=== PATIENT | female | born 1960 | race Caucasian/White ===

== ENCOUNTER 2024-03-08 01:48 | Observation (INO) | payer BC, SELFPAY ==
[2024-03-07] VITALS (9 sets, daily range): BP systolic 121–151; BP diastolic 63–94; BMI 35.8
--- NOTE | 2024-03-07 19:36 | ED.GENMED ---
History of Present Illness
General
Chief Complaint: Abdominal Symptoms
Source: patient
Exam Limitations: none
Time Seen by Provider: 03/07/24 18:46
Nursing documentation reviewed up to this point in time: agreed with
History of Present Illness
History of Present Illness:
Patient is a 63-year-old female who presents to the ER for evaluation. Patient reports she was popcorn with her granddaughter and around 4 PM started to feel very nauseous vomited and felt pain in the right face ,right jaw area and pain across her
chest. She did not feel any shortness of breath. She does still feel some pain across her chest that is around a 3 out of a 10. She has no cardiac history but has not been to her family doctor in a couple years. She does not smoke.
Denies any injury . Denies any back pain.
Review of Systems
Review of Systems
Allergies reviewed?: Yes
Other source history: family
All Other Systems: ROS reviewed and negative except as documented in HPI and ROS
Constitutional: Reports no symptoms; Denies fever, fatigue or chills
Respiratory: Denies trouble breathing
Cardiac: Reports chest pain; Denies palpitations
ABD/GI: Reports nausea and vomiting
Musculoskeletal: Reports no symptoms
Skin: Reports no symptoms
Neurological: Reports no symptoms
Psychiatric: Reports no symptoms
Phy Exam
General Physical Exam
General Presentation: no apparent distress
General age: appears stated age
General Skin: warm and dry
General Habitus: normal
General Mental: alert
General Hydration: appears well hydrated
Cardiovascular Exam
Cardiovascular Exam: regular rate/rhythm, no murmur and normal peripheral pulses
Pulmonary Exam
Pulmonary Exam: lungs clear and no respiratory distress
Neurological Exam
Neurological Exam: alert and oriented x3
Musculoskeletal Exam
Musculoskeletal Exam: full ROM
Skin Exam
Skin Exam: normal color and warm/dry
Psychiatric Exam
Psychiatric Exam: normal mood/affect
Course
Orders/Labs/Results
Orders:
Orders
03/07/24 18:24
ECG [Electrocardiogram (*1)] Urgent
Reason for Study: Chest Pain
EKG- Treatment ONCE
03/07/24 19:47
IV Insert/Care/Rem.- Treatment PRN
03/07/24 19:48
Cardiac Monitoring- Treatment ONCE
Aspirin Chewable [Low Strength Aspirin] 324 mg PO NOW STA
CR Chest - 2 Views Urgent
Comment:
Reason For Exam: cp
03/07/24 19:49
Nitroglycerin Sublingual [Nitrostat (Sublingual)] 0.4 mg SL NOW STA
03/07/24 19:51
Complete Blood Count/With Diff Urgent
Comprehensive Metabolic Panel Urgent
Troponin I Urgent
03/07/24 22:33
Troponin I Urgent
03/07/24 22:40
Electrocardiogram (*1) Stat
Reason for Study: Chest Pain
Electrocardiogram (*1) Urgent
EKG- Treatment ONCE
03/07/24 23:28
Ketorolac [Toradol] 15 mg IV NOW STA
Abnormal Lab Results
03/07/24
19:51
Absolute Neuts (auto) 8.7 H 10^3/uL
(1.4-6.5)
Neutrophils % 80.8 H %
(42.2-75.2)
Lymphocytes % 15.8 L %
(20.5-51.1)
BUN 18 H mg/dl
(7-17)
Glucose 115 H mg/dl
(70-99)
Calcium 10.4 H mg/dl
(8.4-10.2)
03/07/24 19:51
03/07/24 19:51
Vital Signs
Initial and Last Documented VS:
Initial Vital Signs
Temp Pulse Resp BP Pulse Ox
98.1 F 77 18 145/94 98
03/07/24 18:28 03/07/24 18:28 03/07/24 18:28 03/07/24 18:28 03/07/24 18:28
Last Documented Vital Signs
Temp Pulse Resp BP Pulse Ox
98.1 F 79 14 137/68 93
03/07/24 18:28 03/07/24 22:45 03/07/24 22:45 03/07/24 21:15 03/07/24 22:45
Director Of Research consulted with Physician
Director Of Research consulted with physician?: Yes
Name of Physician Consulted: Lucien
MDM/Problems Addressed
Differential Diagnosis Includes:
not limited to: [place]
MDM/Problems Addressed:
Patient is a 63-year-old female who presented to the ER for evaluation of chest pain and right jaw pain after paddle boarding today. She also had vomited several times. She had no shortness of breath. No cardiac history. She presented awake
alert no acute distress no obvious ST segment elevation but nonspecific ST findings no prior EKG for comparison. Patient was given 1 nitroglycerin that did not relieve her symptoms. She was given 4 baby aspirin. Presently(2049)she feels the pain
is resolved. Will repeat cardiac troponin 2250. Pt in no acute distress stable vitals.
2337:repeat trop unchanged however case reviewed with cardiology with concerning exertional symptoms of nausea vomiting right-sided jaw pain and chest pain will recommend admission. As per cardiology would recommend admit to medicine service.
*Radiology
Radiology exam reviewed: radiology read reviewed
*Pulse Oximetry
Patient hypoxic: no
*EKG
Interpreted by ED Provider?: Yes
Interpretation: abnormal
Heart Rate: 89
Rate: normal
Rhythm: sinus
Ischemia: other (repeat ekg unchanged )
*Critical Care Note
Total Time (30-74mins, 75-104mins- exclusive of procedures): Not Applicable
Patient Management
Discussion with other providers: [employer] Chief (DR Calvillo cardiology )
ED Attending Note
-
Portions of this chart may have been created with voice recognition software.� Occasional wrong word or��sound alike� substitutions may have occurred due to the inherent limitations of voice recognition software.
Discharge Plan
Departure
Patient Disposition: Admit
Date of Disposition: 03/07/24
Time of Disposition: 23:39
Admit to: Telemetry
Admit to doctor: lewis
Presentation/result/management discussed w/ accepting MD/DO: Hospitalist
Patient with high blood pressure during this ER visit?: Yes
Condition: Fair
Covid-19: Not Applicable
Discharge Problem:
Chest pain
Referrals:
Alysia Reyes, DO [Family Provider] -
Interventions
Interventions:
*Risk Screen - Suicide Last Done: 03/07/24 20:41
*General Assessment Last Done: 03/07/24 23:37
*Neglect/Abuse Screening Last Done: 03/07/24 20:41
ED- Fall Risk Assessment Last Done: 03/07/24 23:37
*ED COVID-19 Vaccine History Last Done: 03/07/24 23:38
XZ-Ghgeml-Ymhqceaway Assessment Last Done: 03/07/24 20:41
Discharge Date and Time
Print Language: OCCITAN
[2024-03-07] MEDS: NITROSTAT (SUBLINGUAL) 0.4 MG SL (20:01)
[2024-03-07] MEDS: LOW STRENGTH ASPIRIN 324 MG PO (20:01)
[2024-03-07 20:03] LABS: % Basophils 0.4 % (0-2); % Eosinophils 0.2 % (0-6); % Immature Granulocytes 0.3 % (0-0.5); % Lymphocytes 15.8 % (20.5-51.1); % Monocytes 2.5 % (1.7-9.3); % Neutrophils 80.8 % (42.2-75.2); Absolute Lymphocytes 1.7 10^3/uL (1.2-3.4); Absolute Monocytes 0.3 10^3/uL (0.1-0.6); Absolute Neutrophils 8.7 10^3/uL (1.4-6.5); Hematocrit 40.6 % (37.0-47.0); Mean Corp Hgb Conc. 34.5 g/dL (33.0-37.0); Mean Corpuscular Volume 84.1 fL (81.0-99.0); Mean Platelet Volume 9.4 fL (7.4-10.4); Nucleated Red Blood Cells % 0 %; Platelet Count 373 10^3/uL (130-400); Red Blood Cell Count 4.83 10^6/uL (4.20-5.40); White Blood Cell Count 10.8 10^3/uL (4.8-10.8)
[2024-03-07 20:27] LABS: ALT (SGPT) 22 U/L (0-35); AST (SGOT) 28 U/L (14-36); Albumin 4.5 g/dl (3.5-5.0); Alkaline Phosphatase 77 U/L (38-126); Blood Urea Nitrogen 18 mg/dl (7-17); Calcium 10.4 mg/dl (8.4-10.2); Carbon Dioxide 29 mmol/L (22-30); Chloride 102 mmol/L (98-107); Estimated Creatinine Clearance 71 ml/min; Glucose 115 mg/dl (70-99); Sodium 136 mmol/L (135-145); Total Bilirubin 0.4 mg/dl (0.2-1.3); eGFR > 60.00
[2024-03-07 20:28] LABS: Troponin I 0.015 ng/ml
[2024-03-07 23:05] LABS: Troponin I 0.015 ng/ml
[2024-03-07] MEDS: TORADOL 15 MG IV (23:33)
[2024-03-08] VITALS (8 sets, daily range): BP systolic 122–161; BP diastolic 58–90; BMI 34.7
--- NOTE | 2024-03-08 01:28 | HPS.HSE ---
Family Physician
-
Family Physician: Alysia Reyes
Chief Complaint
-
Chest Pain, N/V
History of Present Illness
Patient is a 63y F with PMH significant for anxiety / depression who presents to ED complaining of N/V and chest tightness. Patient states that she was paddle-boarding with her grand-daughter today. She notes that she does not typically do this
type of activity. Shortly after they finished their trip and returned to [facility] [place], patient began to feel flushed and nauseated. She had N/V x 2 episodes. She states that she developed tightness across her upper chest. She recovered somewhat and
was able to pack up her vehicle, but stopped to have emesis a third time while doing so.
Patent drove a short distance down the road and had another episode of emesis. She pulled over into a parking lot and rested there for about an hour.
During this time patent noted tightness and pain across the upper chest as well as pain long the R face, jaw and neck. She continued to feel nauseated, warm, and flushed.
Ultimately, she called her who pickd her up and brought her to the ED for evaluation.
Here she received ASA 324mg and SL NTG x 1 with gradual improvement in her symptoms.
Currently she is resting comfortably and has no nausea.
Patient denies any prior history of similar symptoms.
Her only current Rx medication is sertraline. She sees a chiropractor regularly but admits that she has not seen a medical doctor in some time.
Patient denies any known history of heart disease, DM, etc.
Medical History
Past Medical History
Past Medical History: Reports Other
Additional Past Medical History:
Anxiety / Depression
Obesity
Past Surgical History: Reports Other
Additional Past Surgical History:
Appendectomy
Social History
Tobacco: Former Smoker (Quit smoking 30 years ago. Approx 15 pack years total use.)
Alcohol: Occasional
Drug: None
Personal:
Living: With Family
Family History
Family History: Other (Mother: Thyroid Disease, CHF Father: Prostate cancer Sister: Thyroid cancer)
Allergies / Home Medications
Allergies reflects when Allergies were last updated in [employer].
Home Medications with original date entered in [employer]
Allergy/Medication List:
Allergies
Allergy/AdvReac Type Severity Reaction Status Date / Time
codeine Allergy Unknown Verified 03/07/24 18:31
ibuprofen [From Advil] Allergy Itching Verified 03/08/24 00:06
Penicillins Allergy Unknown Verified 03/07/24 18:31
Home Medications
Estriol Cream 0.01 % topical Q48H 03/07/24
Imodium 25 mg PO PRN PRN diarrhea 03/07/24
niacinamide 10 mg PO DAILY 03/07/24
sertraline 25 mg tablet (Zoloft) 25 mg PO DAILY 03/07/24
vitamin D3 125 mcg (5,000 unit)-vitamin K2 100 mcg capsule 1 cap PO 03/07/24
Review of Systems
-
History Source: Patient
A 12 point ROS was completed and negative except as noted: Yes
Constitutional: Reports Fatigue; Denies Fever or Chills
Respiratory: Denies Cough or Trouble Breathing
Cardiac: Reports Chest Pain and Diaphoresis; Denies Palpitations or Syncope
Abdomen/GI: Reports Nausea and Vomiting; Denies Abdominal Pain or Diarrhea
: Denies Dysuria, Frequency or Flank Pain
Neurological: Reports Headache; Denies Dizzy
Psych: Denies Depression or Anxiety
Physical Exam
Vital Signs
Vital Signs
Temp Pulse Resp BP Pulse Ox
98.1 F 67 15 124/62 94
03/07/24 18:28 03/08/24 00:45 03/08/24 00:45 03/08/24 00:15 03/08/24 00:45
Physical Exam
General: Other (63y F in no acute distress.)
HEENT: Moist mucous membranes and PERRLA
Respiratory: Clear; No Wheezes, Rales or Rhonchi
Cardiac: S1/S2 and Regular Rhythm; No Murmur
GI: Soft, Non Tender, Non Distended and Normal Bowel Sounds
Musculoskeletal: No Clubbing, No Cyanosis and No Edema
Neuro: AO x 3
Laboratory Results
-
03/07/24 19:51
03/07/24 19:51
Laboratory Results
Total Bilirubin 0.4 mg/dl (0.2-1.3) 03/07/24 19:51
AST 28 U/L (14-36) 03/07/24 19:51
ALT 22 U/L (0-35) 03/07/24 19:51
Alkaline Phosphatase 77 U/L (38-126) 03/07/24 19:51
Troponin I 0.015 ng/ml 03/07/24 22:33
Impression/Plan
-
A/P: Patient is a 63y F with PMH significant for depression who presents to ED for evaluation of N/V and chest tightness.
Chest Pain
N/V
- Observe overnight for further evaluation and treatment.
- Symptoms seem to have been triggered by exertion and are now improved.
- Continue to monitor for any new / worsening symptoms.
- ASA daily.
- IV NTG as needed.
- Monitor on tele overnight.
- Continue to follow troponin (0.015 x 2 sets thus far).
- Cardiology evaluation in the AM.
- Check AM lipids, A1C, etc.
Depression
- Stable. Continue sertraline.
Obesity due to excess calories
- Affects all aspects of care.
- Encourage healthy diet and exercise as tolerated with goal of weight loss.
DVT Prophylaxis: Lovenox
Code Status: Full
[2024-03-08] MEDS: NSS 1000 IV (02:47)
[2024-03-08] MEDS: TYLENOL 650 MG PO (02:47)
--- NOTE | 2024-03-08 03:13 | PTCARENOTE ---
Rec'd pt. into room 2245 from ED AAOx3, VSS, NSR in the 70's on the monitor. Denied any nausea, did complain of bilateral shoulder pain/achiness level 1 out of 10, worse with movement, requested Tylenol. Dose given, will monitor for effectiveness.
Plan of care discussed with pt., NPO for possible cath. Instructed pt. to notify nursing if any worsening chest pain/nausea/ or SOB occurred, understanding verbalized. Oriented to room, call garcia in reach, pt. sleeping.
[2024-03-08 05:06] LABS: Hematocrit 36.2 % (37.0-47.0); Hemoglobin 12.6 g/dL (12.0-16.0); Mean Corp Hgb Conc. 34.8 g/dL (33.0-37.0); Mean Corpuscular Hgb 29.2 pg (27.0-31.0); Mean Corpuscular Volume 83.8 fL (81.0-99.0); Mean Platelet Volume 9.7 fL (7.4-10.4); Platelet Count 336 10^3/uL (130-400); Red Blood Cell Count 4.32 10^6/uL (4.20-5.40); Red Cell Dist. Width 13.1 % (11.5-14.5); White Blood Cell Count 9.4 10^3/uL (4.8-10.8)
[2024-03-08 05:36] LABS: Blood Urea Nitrogen 15 mg/dl (7-17); Calcium 9.5 mg/dl (8.4-10.2); Carbon Dioxide 25 mmol/L (22-30); Chloride 105 mmol/L (98-107); Estimated Creatinine Clearance 69 ml/min; Glucose 114 mg/dl (70-99); HDL Cholesterol 67 mg/dl; LDL Cholesterol, Calculated 158 mg/dl; Potassium 3.9 mmol/L (3.5-5.1); Sodium 138 mmol/L (135-145); Total Cholesterol 241 mg/dl (50-199); Triglyceride 83 mg/dl (10-149); Very Low Density Lipoprotein 16 mg/dl (0-30); eGFR > 60.00
[2024-03-08 05:48] LABS: Troponin I 0.019 ng/ml
--- NOTE | 2024-03-08 07:46 | W.PN.HOSP.TC ---
Today's Communication/Plan
-
.
Assessment / Plan
Assessment / Plan
Patient is a 63y F with PMH significant for depression who presents to ED for evaluation of N/V and chest tightness.
Acute Chest Pain
- Symptoms seem to have been triggered by exertion and are now improved.
- Continue to monitor for any new / worsening symptoms.
- ASA daily and IV NTG as needed.
- continue tele
- Cardiac stress test today per Cardiology
- started atorvastatin 40 mg/daily due to ASCVD risk being 6.5%
- Stop trending troponins
- Cardiology on board. Appreciate input.
- Pending HbA1C
Depression
- Stable. Continue sertraline.
Obesity due to excess calories
- Affects all aspects of care.
- Encourage healthy diet and exercise as tolerated with goal of weight loss.
DVT Prophylaxis: Lovenox
Code Status: Full
Anticipated Discharge: Within 24 hours
Subjective/Interval History
-
Date of Service: March 08, 2024
Patient reports feeling well today with no ongoing symptoms
Objective Data
-
Labs:
Laboratory Results
03/07/24 03/08/24
19:51 04:41
WBC 10.8 9.4
Hgb 14.0 12.6
Hct 40.6 36.2 L
Plt Count 373 336
Sodium 136 138
Potassium 4.0 3.9
Chloride 102 105
Carbon Dioxide 29 25
BUN 18 H 15
Creatinine 0.8 0.8
Glucose 115 H 114 H
Calcium 10.4 H 9.5
Total Bilirubin 0.4
AST 28
ALT 22
Alkaline Phosphatase 77
Vital Signs:
Vital Signs
Temp Pulse Resp BP Pulse Ox
97.9 F 70 16 139/72 96
03/08/24 06:59 08/14/24 05:00 03/08/24 06:59 03/08/24 04:30 03/08/24 06:59
I&O
03/07/24 03/08/24 03/09/24
06:59 06:59 06:59
Intake Total 500 / 500
Balance 500 / 500
Review of Systems
-
History Source: Patient
All other systems: Reviewed and negative
Physical Exam
-
General: Well Developed, Well Nourished, No Apparent Distress, Comfortable and Conversant
HEENT: Normocephalic and Atraumatic
Respiratory: Clear to Auscultation
Cardiac: Regular Rhythm and S1/S2
GI: Soft, Nontender and Nondistended
Musculoskeletal: No Clubbing, No Cyanosis and No Edema
Skin: Warm and Dry
Psych: Calm
Data Reviewed
-
Total Time Spent with Patient (in minutes): 30
Labs: Labs Reviewed by me and Discussed with Physician
Old Records: Reviewed
--- NOTE | 2024-03-08 08:15 | CON.CAR ---
Addendum entered and electronically signed by Keon Bejarano MD 03/08/24 09:52:
I saw and examined the patient.
The [employer]PAR[employer] WORKER or PA's note was reviewed and I agree with the note.
63-year-old woman with no prior history of cardiac disease who went paddle boarding yesterday and was not feeling well about 10 minutes after returning to sure. Multiple episodes of nausea and vomiting followed by some chest tightness with some
radiation to the jaw. She had some chest discomfort that lasted for hours. Chest discomfort eventually resolved and she was pain-free overnight. Nausea and vomiting have also resolved. Exact etiology remains unclear. Troponins 0.015 and 0.019.
1 additional troponin is pending. Multiple factors may have contributed patient's chest discomfort including GI issues as well as musculoskeletal discomfort related to paddle boarding but would also consider the possibility of coronary ischemia.
If patient had hours of symptoms and troponins remain negative it would make coronary ischemia less likely. Will await pending troponin. If this is unremarkable then patient will proceed with a nuclear perfusion stress test later today.
Original Note:
Consultation
Consultation Request
Date/Time Consultation Requested: 03/08/24 0210
Date/Time Consultation Performed: 03/08/24 0800
Requesting Provider: Dr. Herring
Performing Provider: Hannah STEVEN for Dr. Bejarano
Reason for Consultation: chest tightness
Medical History
-
Chief Complaint: chest tightness, nausea
History of Present Illness:
63 y/o female with depression and obesity who is here for evaluation of nausea and chest tightness. Briefly, she was paddle boarding yesterday afternoon and felt fine paddle boarding, but when she got to land she became very nauseated and vomited.
This continued and she threw up a total of 4 times. During this event, she also noted that she had tightness across her chest going into her neck and jaw for several hours. It resolved about 1 hour after being in the ER and getting aspirin and
nitro. She is comfortable at the time of my assessment without CP or nausea. She works out by walking and yoga and cathy several times a week and does not get chest tightness. However, several weeks ago in bed she had a left sided chest cramping
after turning, with associated nausea, but it resolved after 10 minutes so she did not worry very much.
Past Medical History
Past Medical History: Other (depression and obesity as above)
Social History
Tobacco: Former Smoker (smoked from age [age])
Alcohol: Occasional
Drug: None
Personal:
Living: With Family
Allergies / Home Medications
Allergy/AdvReac Type Severity Reaction Status Date / Time
Latex, Natural Rubber Allergy Mild Itching Verified 03/08/24 03:19
codeine Allergy Unknown Verified 03/07/24 18:31
ibuprofen [From Advil] Allergy Itching Verified 03/08/24 00:06
Penicillins Allergy Unknown Verified 03/07/24 18:31
�Medication �Instructions �Recorded �Confirmed �Type
Estriol Cream 0.01 % topical Q48H 03/07/24 History
Imodium 25 mg PO PRN PRN diarrhea 03/07/24 03/08/24 History
niacinamide 10 mg PO DAILY 03/07/24 03/08/24 History
sertraline 25 mg tablet (Zoloft) 25 mg PO DAILY 03/07/24 03/07/24 History
vitamin D3 125 mcg (5,000 1 cap PO 03/07/24 History
unit)-vitamin K2 100 mcg capsule
Review of Systems
-
History Source: Patient
All other systems: Negative unless noted
Cardiac: Chest Pain
Abdomen/GI: Nausea and Vomiting
Physical Exam
Vital Signs
Temp Pulse Resp BP Pulse Ox
97.9 F 70 16 139/72 96
03/08/24 06:59 03/08/24 05:00 03/08/24 06:59 03/08/24 04:30 03/08/24 06:59
Lab Results
03/08/24 04:41
03/08/24 04:41
Troponin I 0.019 ng/ml D 03/08/24 04:41
Physical Exam
General: Well Developed, Well Nourished and No Apparent Distress
HEENT: Normocephalic
Respiratory: Clear and Non Labored Respirations
Cardiac: Regular Rhythm
GI: Soft, Non Tender and Non Distended
Musculoskeletal: No Edema
Skin: Warm and Dry
Neuro: AO x 3
Psych: Calm
Impression / Plan
-
Chest tightness:
-resolved
-trops and EKG's unremarkable to this point- awaiting AM troponin
-would evaluate with stress test today (nuclear exercise)
-risk factor assessment for coronary disease: denies fam hx CAD. She is a former smoker (quit age 29). Denies hx HTN, DM, or dyslipidemia. However, she does have dyslipidemia by labs- depending on testing above - add statin vs OP management.
Glucose elevated, HGBA1C pending.
Nausea/vomiting:
-resolved
-unclear cause, cardiac work-up as above, and if negative
Hx Depression:
-on Zoloft
Obesity:
-would benefit from weight loss over time
Data Reviewed
-
EKG: Tracing Personally Visualized and interpreted (SR 79 BPM)
Radiology: Report Reviewed by me (CXR: No evidence of active cardiopulmonary disease.)
Labs: Labs Reviewed by me
[2024-03-08] MEDS: LOW STRENGTH ASPIRIN 81 MG PO (09:17)
[2024-03-08] MEDS: ZOLOFT 25 MG PO (09:17)
[2024-03-08 10:02] LABS: Troponin I < 0.012 ng/ml
[2024-03-08 10:53] LABS: Glycohemoglobin (HgbA1c) 5.6 % (4.0-5.6)
--- NOTE | 2024-03-08 13:18 | W.DCSUMMARY ---
Discharge Summary
Discharge Data
Date of Admission: 03/08/24
Date of Discharge: 03/08/24
-
Pending Results: No
Hospital Course
Hospital diagnosis�chest pain
Diagnosis prior to admission-
Anxiety/depression
Obesity
Hospital course-patient is a 63-year-old female with past medical history of anxiety/depression presented to the [facility] with complaints of nausea/vomiting and chest tightness. Prior to admission she reports 3 episodes of nausea and
vomiting, chest tightness across upper chest with radiation to right face/jaw/neck. In the ED she was given 324 mg of ASA and sublingual nitroglycerin. Patient monitored on telemetry and troponins followed to peak. Based on lipid panel, which
showed newly diagnosed dyslipidemia, patient was put on atorvastatin 40 mg because her ASCVD risk was 6.5%. Hemoglobin A1c was 5.6%, in normal range and not prediabetic or diabetic. Cardiology was consulted and did an echo and stress test on 03/08.
Echo showed normal left ventricular size, wall thickness and systolic function. Left ventricular ejection fraction was 60 to 65%. Mild mitral regurgitation and no prior studies for comparison. During stay, patient had no repeat episodes of chest
pain, nausea or vomiting. Stress test/ EKG showed no evidence of active cardiopulmonary disease. Patient started on aspirin. Patient was continued on home Zoloft medication during admission.
Data Reviewed-
CXR 03/07:
No evidence of active cardiopulmonary disease
Echo 03/08:
CONCLUSIONS
Normal left ventricular size, wall thickness and systolic function.
LV ejection fraction is 60-65%.
Mild mitral regurgitation.
No prior study available for comparison
Discharge Plan
-
Patient Disposition: Home (Routine Discharge)
Discharge Diagnosis/Procedures: chest pain
Condition: Good
Diet: As tolerated and Low Cholesterol
Activity: No restrictions and As tolerated
Driving Restrictions: As prior to admission
Bathing Restrictions: None
Referrals:
Reyes,Alysia T., DO [Family Provider] - in one to two weeks
Hannah Fletcher CRNP [Specified Professional Personl] - 04/07/24 10:40 am
Prescriptions:
New
atorvastatin 40 mg Tablet
40 mg PO QPM 30 Days Qty: 30 0RF
aspirin 81 mg Tablet,Chewable
81 mg PO DAILY 30 Days Qty: 30 2RF
Continued
sertraline [Zoloft] 25 mg Tablet
25 mg PO DAILY
vitamin D3-vitamin K2 125 mcg (5,000 unit)-100 mcg Capsule
1 cap PO
Estriol Cream 0.01 %
0.01 % topical Q48H
Rx Instructions:
Patient takes this every other day
Imodium 25 mg
25 mg PO PRN PRN (Reason: diarrhea)
niacinamide 10 mg
10 mg PO DAILY
Rx Instructions:
with b6 complex- 50mg
Discharge Orders:
Discharge Patient (As Directed); Ordered 03/08/24
Ordered By: Jhon Staton
Care Plan Goals
Care Plan Goals:
Problem: Readiness for enhanced knowledge related to diagnosis and treatment plan
Goal: Understand your diagnosis and treatment plan needs, including medications if applicable.
Instructions: Know your diagnosis, underlying causes and treatment plan options, including medications if applicable. Consult with your health care team to learn about your diagnosis and treatment plan, including medications if applicable.
Discharge Date and Time
Print Language: GEORGIAN
--- NOTE | 2024-03-08 13:27 | CM ---
Reviewed chart. Met with Ms. Funez and her spouse to review discharge plans. She states prior to admission she resides with her spouse in a two story home. She states she has a full flight of steps to get to bedroom/full bathroom. She states she
has a powder room on the first floor. She states prior to admission she was independent with ambulation and adls. She states she does not have any DME in the home. She states she has a prescription plan and uses [facility]. The discharge
plan is to return home with her spouse when medically stable.
--- NOTE | 2024-03-08 15:34 | PTCARENOTE ---
Pt seen by . Pt had a stress test?echo. Telemetry and IV device removed. Discharge instructions reviewed with pt and her regarding medications and their possible side effects, reporting cares and concerns and follow up appt's.
Very good understanding verbalized. Pt escorted out via wheelchair and discharged to home.
== END 2024-03-08 15:36 | disposition home or self-care (01) ==
LOC: IVU 01:48
PROVIDERS: Nurse Practitioner; ADMITTING PHYSICIAN Hospitalist; ATTENDING PHYSICIAN Hospitalist; EMERGENCY PHYSICIAN Student in an Organized Health Care Education/Training Program; FAMILY PHYSICIAN Family Medicine; OTHER PHYSICIAN Internal Medicine Cardiovascular Disease
DX: R07.89 Other chest pain (principal); R10.9 Unspecified abdominal pain; R11.2 Nausea with vomiting, unspecified; R68.84 Jaw pain; F41.9 Anxiety disorder, unspecified; F32.A Depression, unspecified; R23.2 Flushing; E78.5 Hyperlipidemia, unspecified; E66.09 Other obesity due to excess calories; Z68.34 Body mass index [BMI] 34.0-34.9, adult; Z87.891 Personal history of nicotine dependence; Z83.49 Family history of other endocrine, nutritional and metabolic diseases; Z82.49 Family history of ischemic heart disease and other diseases of the circulatory system; Z88.6 Allergy status to analgesic agent; Z88.5 Allergy status to narcotic agent; Z88.0 Allergy status to penicillin; Z91.040 Latex allergy status
CPT/HCPCS: 71046; 78452; 80048; 80053; 80061; 83036; 84484; 85025; 85027; 93005; 93017; 93306; 99285; A9500; G0378